=== PATIENT | male | born 1960 | race Native Hawaiian/Other Pacific Islander ===

== ENCOUNTER 2017-02-06 21:13 | Emergency (ER) | payer SELFPAY ==
[~2017-02-06] VITALS: Ht 193 cm; Wt 106.6 kg
[~2017-02-06 21:13] MED LIST: AMOXICILLIN500 MG PO; BAYER ASPIRIN C81 MG PO; BP MED; CATAPRES0.1 MG PO; FLEXERIL5 MG PO; HYDROCODONE BIT1 T11 PO; KEFLEX500 MG PO; LIDOCAINE VISC100 ML MM; METOPROLOL100 MG PO; MOTRIN600 MG PO; MOTRIN800 MG PO; NORFLEX100 MG PO; NOVOLOG1 UNIT/0.0; PEN-V500 MG PO; PHENERGAN W/ DE30 ML PO; PREDNICOT10 MG PO; SALINE MIST 4545 ML NAS; TESSALON PERLE200 MG PO; ULTRAM50 MG PO; ZITHROMAX250 MG PO
[2017-02-06 21:34] VITALS: BP 160/98
[2017-02-06] MEDS ORDERED: CLEOCIN HCL300 MG PO (21:35)
[2017-02-06] MEDS ORDERED: NAPROSYN500 MG PO (21:35)
== END 2017-02-06 21:55 | disposition home or self-care (01) ==
LOC: ED 21:13
DX: K02.9 Dental caries, unspecified (principal)

== ENCOUNTER 2017-03-31 13:39 | Emergency (ER) | payer OTHER ==
[~2017-03-31] VITALS: Wt 106.6 kg
[~2017-03-31 13:39] MED LIST changes: +CLEOCIN HCL300 MG PO; +NAPROSYN500 MG PO
[2017-03-31] MEDS ORDERED: "\\\"BP MED\\\"" PO (13:47)
[2017-03-31 13:52] VITALS: BP 164/110
== END 2017-03-31 14:38 | disposition home or self-care (01) ==
LOC: ED 13:39
DX: S61.011A Laceration without foreign body of right thumb without damage to nail, initial encounter (principal); Z98.890 Other specified postprocedural states; W45.8XXA Other foreign body or object entering through skin, initial encounter; Y93.89 Activity, other specified; Y92.69 Other specified industrial and construction area as the place of occurrence of the external cause; Y99.9 Unspecified external cause status

== ENCOUNTER 2025-05-03 18:39 | Emergency (ER) | payer OTHER ==
[~2025-05-03] VITALS: Wt 106.6 kg
[~2025-05-03 18:39] MED LIST changes: +"\\\"BP MED\\\"" PO
[2025-05-03 19:04] VITALS: BP 181/78
[2025-05-03] MEDS ORDERED: METOPROLOL TART75 MG PO (19:07)
[2025-05-03] MEDS ORDERED: LISINOPRIL-HCT1 EACH PO (19:07)
[2025-05-03] MEDS ORDERED: ATORVASTATIN CA10 M1 PO (19:08)
[2025-05-03] MEDS ORDERED: METFORMIN HYD1000 MG PO (19:08)
[2025-05-03] MEDS ORDERED: ASPIRIN CHILDRE81 MG PO (19:16)
== END 2025-05-03 20:09 | disposition home or self-care (01) ==
LOC: ED 18:39
DX: R04.0 Epistaxis (principal); Z79.899 Other long term (current) drug therapy; Z79.82 Long term (current) use of aspirin; Z79.84 Long term (current) use of oral hypoglycemic drugs